=== PATIENT | male | born 1955 | race Caucasian/White ===

== ENCOUNTER → 2017-03-26 | Outpatient (CLI) | payer OTHER ==
--- NOTE | 2017-03-27 09:11 | Diagnostic Imaging Report ---
TECHNIQUE: Magnetic resonance imaging of the RIGHT KNEE and RIGHT FEMUR were separately performed WITHOUT injected contrast. HISTORY: Pain, mid thigh down to knee, fell, acute medial meniscal tear, COMPARISON: None available. FINDINGS: LIGAMENTS AND TENDONS: ACL: Intact, mild intrasubstance degeneration. PCL: Intact Collateral ligaments: Intact Iliotibial band: Unremarkable Popliteal tendon: Intact Extensor mechanism: The patellar ligament/tendon is intact, minimal laxity. High-grade complex tearing of the distal quadriceps tendon, medial greater than lateral. No complete tendon retraction; however, 2.4 cm retraction of the superficial fibers which predominantly involve the fibers contributing from the rectus femoris. JOINT: Menisci: Medial: Mild complex tearing and attenuation involving the periphery, centered near the junction of the body and posterior horn, mild peripheral extrusion of a fragment from the peripheral tibial articular surface into the inferomedial joint recess, measuring approximately 1.7 cm (AP) x 0.3 cm (ML). Lateral: Mild intrasubstance delamination of the central anterior horn, extending from the adjacent anterior cruciate foot print. Articular Cartilage: Medial Compartment: Intermediate to high-grade erosion and fibrillation of the weightbearing cartilage. Lateral Compartment: No focal defect. Patellofemoral Compartment: Intermediate grade erosion and full-thickness fissuring of the medial patellar facet. Joint Fluid: Moderate nonspecific joint effusion with synovitis, a nondistended Jarvis's cyst, and a 1.7 cm (AP) x 2.4 cm (ML) x 3.6 cm (CC) multilobulated popliteal cyst adjacent to the posterior margin of the posterior cruciate ligament. BONES: No focal or infiltrative bone marrow replacing abnormality. No acute fracture. SOFT TISSUES: Anterior soft tissue edema within the quadriceps muscles extending distally to the level of the patella, most notably about the quadriceps tendon tear. IMPRESSION: 1. High-grade tear of the distal quadriceps tendon, as detailed above. 2. Medial and patellofemoral compartment predominant tricompartmental degenerative changes, including degenerative tearing of the medial meniscus. Signed by: Dr. Souleymane Enriquez D.O., M.M.M. on 03/27/2017 9:07 AM
== END ==
LOC: MRI 17:50
PROVIDERS: ATTEND Family Medicine
DX: S76.911A Strain of unspecified muscles, fascia and tendons at thigh level, right thigh, initial encounter (principal); S83.206A Unspecified tear of unspecified meniscus, current injury, right knee, initial encounter

== ENCOUNTER → 2017-04-08 | Day surgery (SDC) | payer OTHER ==
[~2017-04-08] MED LIST: ACETAMINOPHEN 1000 MG/100 ML IV ONE; BACITRACIN 50,000 UNIT VIAL ONE; BUPIVACAINE HCL 0.5% INJ 30 ML VIAL INJ ONE; CEFAZOLIN SOD 2 GM/D5W 50ML 50 ML IV ONE; DEXAMETHASONE SOD PHOS INJ 4 MG/ML VIAL ONE; EPINEPHRINE HCL INJ 1 MG/ML AMP ONE; FENTANYL CITRATE/PF 100MCG/2 ML INJ ONE; LABETALOL HCL IV 5 MG/ML 20ML MDV ONE; LIDOCAINE HCL 2% LOCAL INJ 5 ML SDV VIAL INJ ONE; MIDAZOLAM HCL 2 MG/2 ML VIAL ONE; NEXIUM40 MG PO; ONDANSETRON HCL INJ 2 MG/ML VIAL ONE; PROPOFOL IV EMULSION 10 MG/ML 20 ML VIAL ONE; SEVOFLURANE INHAL SOLN 250 ML PEN BTL ONE
--- NOTE | 2017-04-09 11:49 | Operative Report ---
DATE OF PROCEDURE: April 08, 2017 PREOPERATIVE DIAGNOSIS: Right quadriceps tendon rupture. POSTOPERATIVE DIAGNOSIS: Right quadriceps tendon rupture as well as muscle rupture. OPERATION/PROCEDURE PERFORMED: Patient underwent a right quadriceps tendon repair. ANIMAL BIOLOGIST: Meghann Bateman. ANESTHESIA: General endotracheal intubation anesthesia. IV FLUIDS: Per anesthesia record. BRIEF DESCRIPTION OF PATIENT'S OPERATIVE PROCEDURE: Mr. Schmitt was taken to the operating room and placed in supine position on the operating table. Following induction of general anesthesia as well as endotracheal intubation, the patient's right lower extremity was examined under anesthesia. He was found to have swelling and bruising about his right knee. He had a palpable defect along the superior pole of patella, more so medially than laterally. The patient's lower extremity was prepped and draped in standard surgical fashion. An incision was created directly over the knee joint extending approximately 8 cm proximal to the superior pole of the patella to the level of the inferior pole of the patella. This incision was carried through the skin only. Blunt dissection was used to deepen the incision and the patient was found to have a complicated right quadriceps muscle and tendon rupture. The quadriceps tendon was split in the AP plane with a few remaining fibers of the quadriceps tendon remaining attached to the patella, but those fibers; however, were stretched and also partially torn within the midsubstance of that portion of the tendon. There was also a rupture of the quadriceps muscle medially and to a lesser degree laterally. Full-thickness skin flaps were elevated, exposing the fascia overlying the quadriceps musculature and thoroughly exposing the quadriceps tendon. The wound was copiously irrigated and a quadriceps muscle hematoma was evacuated. The ruptured portion of the quadriceps tendon was debrided. The few remaining fibers that were attached to the patella were also released and debrided to a healthy margin. The quadriceps tendon was then repaired using FiberWire suture in a whipstitch-type fashion. The superior pole of the patella was then debrided to a bleeding bony bed. Three holes were placed through the patella and the suture was passed through the patella drawing the quadriceps tendon into the superior pole of the patella. These sutures were then tied over the anterior surface of the patella, providing excellent reapproximation of the superior pole of the patella and the main body of the quadriceps tendon. The muscle both medially and laterally was then drawn together and sutured. The fascia overlying the muscle was then reapproximated, providing further stabilization of the quadriceps mechanism. The wound was again copiously irrigated. The soft tissues were then closed in a multilayer fashion. Sterile dressings were applied as well as a knee immobilizer, and the patient was then awakened and taken to postanesthesia care unit in stable condition. Meghann Bateman acted as a parking assistant for this case and was necessary for both prepping and draping of the patient as well as the retraction of soft tissues to allow this case to be successful. Job#: [id number] SAK
== END | disposition home or self-care (01) ==
LOC: OR 10:53
PROVIDERS: ATTEND Specialist
DX: S76.191A Other specified injury of right quadriceps muscle, fascia and tendon, initial encounter (principal); I10 Essential (primary) hypertension; K21.9 Gastro-esophageal reflux disease without esophagitis; W01.0XXA Fall on same level from slipping, tripping and stumbling without subsequent striking against object, initial encounter; Y93.89 Activity, other specified; Y92.89 Other specified places as the place of occurrence of the external cause; Z01.810 Encounter for preprocedural cardiovascular examination; Z68.34 Body mass index [BMI] 34.0-34.9, adult
CPT/HCPCS: 27385; 93005; J0171; J1100; J2001; J2250; J2405; J3490

== ENCOUNTER → 2017-07-06 | Outpatient (RCR) | payer OTHER ==
[~2017-07-06] MED LIST changes: -ACETAMINOPHEN 1000 MG/100 ML IV ONE; -BACITRACIN 50,000 UNIT VIAL ONE; -BUPIVACAINE HCL 0.5% INJ 30 ML VIAL INJ ONE; -CEFAZOLIN SOD 2 GM/D5W 50ML 50 ML IV ONE; -DEXAMETHASONE SOD PHOS INJ 4 MG/ML VIAL ONE; -EPINEPHRINE HCL INJ 1 MG/ML AMP ONE; -FENTANYL CITRATE/PF 100MCG/2 ML INJ ONE; -LABETALOL HCL IV 5 MG/ML 20ML MDV ONE; -LIDOCAINE HCL 2% LOCAL INJ 5 ML SDV VIAL INJ ONE; -MIDAZOLAM HCL 2 MG/2 ML VIAL ONE; -ONDANSETRON HCL INJ 2 MG/ML VIAL ONE; -PROPOFOL IV EMULSION 10 MG/ML 20 ML VIAL ONE; -SEVOFLURANE INHAL SOLN 250 ML PEN BTL ONE
== END ==
LOC: PT 06-09 15:50
PROVIDERS: ATTEND Family Medicine
DX: S76.111A Strain of right quadriceps muscle, fascia and tendon, initial encounter (principal); M25.561 Pain in right knee; M25.661 Stiffness of right knee, not elsewhere classified; M62.81 Muscle weakness (generalized)
CPT/HCPCS: 97110 ×10; 97139; 97161; G8978 ×2; G8979 ×2

== ENCOUNTER 2017-07-09 07:57 | Outpatient (RCR) | payer OTHER | END 2017-08-06 | LOC: PT 07:57 | PROVIDERS: ATTEND Family Medicine | DX: S76.111A Strain of right quadriceps muscle, fascia and tendon, initial encounter (principal); M25.561 Pain in right knee; M25.661 Stiffness of right knee, not elsewhere classified; M62.81 Muscle weakness (generalized) | CPT/HCPCS: 97110 ×2; G8979; G8980 ==